=== PATIENT | male | born 2000 | race Caucasian/White ===

== ENCOUNTER 2023-01-30 19:05 | Emergency (ER) | payer MEDICAID ==
--- NOTE | 2023-01-30 20:42 | XRAY Report ---
PROCEDURE: Chest 2 View X-Ray INDICATIONS: chest pain TECHNIQUE: 2 views of the chest were acquired. COMPARISON: None. FINDINGS: Surgical changes and devices: None. Lungs and pleura: No pleural effusions or pneumothorax. Lungs are clear. Mediastinum: Mediastinal contours appear normal. Heart size is normal. Bones and chest wall: No suspicious bony lesions. Overlying soft tissues appear unremarkable. IMPRESSION: No acute cardiopulmonary process. Reviewed by: Akhil Gonzalez MD on 01/30/2023 8:40 PM PDT Approved by: Akhil Gonzalez MD on 01/30/2023 8:40 PM PDT Station ID: [id number]
--- NOTE | 2023-01-30 20:54 | ED Physician Documentation ---
PD HPI CHEST PAIN - Stated complaint Stated Complaint: CHEST PX - Chief complaint Chief Complaint: Cardiac - History obtained from History obtained from: Patient - Additional information Additional information: 22yM previously healthy presents to the ED with midsternal cp X 1 year, worsening over past month. patient has brief remitting episodes every 5 to 10 minutes with associated soa . he states it improves with sipping a sugary beverage or taking deep breaths. denies nausea, lightheadedness, fever, cough, leg swelling, hemoptysis. PD PAST MEDICAL HISTORY - Allergies Allergies/Adverse Reactions: Allergies Allergy/AdvReac Type Severity Reaction Status Date / Time No Known Drug Allergies Allergy Verified 01/30/23 19:21 PD ED PE NORMAL - Vitals Vital signs reviewed: Yes - General General: Alert and oriented X 3, No acute distress, Well developed/nourished - HEENT HEENT: Atraumatic, PERRL, EOMI, Moist mucous membranes - Neck Neck: Supple, no meningeal sign - Cardiac Cardiac: RRR - Respiratory Respiratory: No respiratory distress, Clear bilaterally - Abdomen Abdomen: Non tender, Non distended - Derm Derm: Normal color, Warm and dry - Neuro Neuro: Alert and oriented X 3 Results - Vitals Vitals: Vital Signs - 24 hr 01/30/23 19:11 Temperature 36.7 C Heart Rate 94 Respiratory 18 Rate Blood Pressure 148/92 H O2 Saturation 98 Oxygen O2 Source Room air PD Medical Decision Making - ED course ED course: 22yM presents to the ED with CP X 1 year without acute red flag symptoms tonight. CXR Showed no evidence of cardiopulmonary disease per my interpretation. I will call him if the radiologist has any additional findings. He is with completely benign physical exam including cardiopulmonary exam. Return precautions given. Plan to follow-up with primary care provider. Likely costochondritis versus panic attack. Doubt pneumonia, pneumothorax, pleural effusion, given normal chest x-ray and doubt asthma given no evidence of wheezing. He is extremely low risk for pulmonary embolism or IN. Departure - Departure Disposition: 01 Home, Self Care Clinical Impression: Chest pain, Hypertension Condition: Stable Instructions: ED Chest Pain NonCardiac Comments: You were seen in the emergency department for chest pain. Your chest xray looked okay and you had a normal exam. You did have some mildly increased blood pressure of 148/92. Please follow-up with your primary care provider and return to the emergency department if you have any new or worsening symptoms or other concerns.
[2023-01-30 21:04] VITALS: BP 122/66; O2SAT 96
== END 2023-01-30 20:59 | disposition home or self-care (01) ==
LOC: ED 19:05
DX: R07.9 Chest pain, unspecified (principal); I10 Essential (primary) hypertension
CPT/HCPCS: 93005; 99283; 99284

== ENCOUNTER 2023-03-03 12:27 | Emergency (ER) | payer MEDICAID ==
[2023-03-03] MEDS ORDERED: FAMOTIDINE 20 MG/2 ML VIAL IVP STA (12:49)
[2023-03-03] MEDS ORDERED: ONDANSETRON 4 MG/2 ML VIAL IVP STA (12:49)
--- NOTE | 2023-03-03 12:52 | ED Physician Documentation ---
History of Present Illness - Stated complaint Stated Complaint: VOMITING - Chief complaint Chief Complaint: Abd Pain - Additonal information Additional information: 23-year-old presents with nausea and vomiting intermittently over the course of the last several weeks. He states it started out was just dry heaving but the last few days he has been vomiting up food. The episodes seem to come spontaneously, he does note that last night he had a nightmare, he woke up in the middle of the night in a panic and then ran to the bathroom and had to vomit. Other times he has simply been walking on the street and feeling like he needs to dry heaves and/or vomit. He has some mild abdominal soreness, no focal pain. He has not had fever or chills, no dysuria urgency or frequency. He does have intermittent diarrhea that is not uncommon for him, he states he believes that he is lactose intolerant. No change in diet recently. He does not smoke marijuana, no history of cyclic vomiting. He has not attempted any medication for this issue. He does not smoke cigarettes about a pack a day, denies alcohol use. PD PAST MEDICAL HISTORY - Past Medical History Past Medical History: Yes Cardiovascular: Hypertension Respiratory: None Neuro: None Endocrine/Autoimmune: None GI: None : None HEENT: None Psych: None Musculoskeletal: None Derm: None - Past Surgical History Past Surgical History: No - Present Medications Home Medications: Ambulatory Orders Medication Instructions Recorded Confirmed Famotidine [Acid [employer]] 20 mg PO DAILY #30 tab 03/03/23 Lisinopril [Zestril] 20 mg PO DAILY 03/03/23 03/03/23 Ondansetron Odt [Zofran] 4 mg TL Q6H PRN #10 tablet 03/03/23 - Allergies Allergies/Adverse Reactions: Allergies Allergy/AdvReac Type Severity Reaction Status Date / Time No Known Drug Allergies Allergy Verified 03/03/23 12:36 - Social History Does the pt smoke?: Yes Smoking Status: Current every day smoker Does the pt drink ETOH?: No Does the pt have substance abuse?: No - Immunizations Immunizations are current?: No Immunizations: Other immun not current PD ED PE NORMAL - Vitals Vital signs reviewed: Yes - General General: Alert and oriented X 3, No acute distress, Well developed/nourished - HEENT HEENT: Atraumatic, Moist mucous membranes - Cardiac Cardiac: RRR, No murmur, No gallop, No rub - Respiratory Respiratory: No respiratory distress, Clear bilaterally - Abdomen Abdomen: Normal bowel sounds, Soft, Non tender, Non distended, No organomegaly, Other - Derm Derm: Normal color, Warm and dry, No rash Results - Vitals Vitals: Vital Signs - 24 hr 03/03/23 03/03/23 12:36 13:05 Temperature 36.1 C L Heart Rate 102 H 95 Respiratory 18 20 Rate Blood Pressure 151/97 H 142/81 H O2 Saturation 99 97 Oxygen O2 Source Room air - Labs Labs: Laboratory Tests 03/03/23 03/03/23 12:57 12:57 WBC 9.9 RBC 5.49 Hgb 15.3 Hct 45.5 MCV 82.9 MCH 27.9 MCHC 33.6 RDW 12.5 Plt Count 270 MPV 8.9 Neut # (Auto) 5.4 Lymph # (Auto) 3.3 Ellis # (Auto) 0.9 Eos # (Auto) 0.1 Baso # (Auto) 0.1 Absolute Nucleated RBC 0.00 Nucleated RBC % 0.0 Sodium 136 Potassium 3.8 Chloride 102 Carbon Dioxide 28 Anion Gap 6.0 BUN 9 Creatinine 0.6 Estimated GFR (MDRD) 168 Glucose 141 H Calcium 9.7 Total Bilirubin 0.4 AST 20 ALT 48 Alkaline Phosphatase 58 Total Protein 7.2 Albumin 4.5 Globulin 2.7 Albumin/Globulin Ratio 1.7 Lipase 18 PD Medical Decision Making - ED course Complexity details: reviewed results, considered differential, d/w patient Departure - Departure Disposition: 01 Home, Self Care Clinical Impression: Vomiting Qualifiers: Vomiting type: unspecified Nausea presence: without nausea Qualified Code(s): R11.11 - Vomiting without nausea Condition: Good Instructions: ED Nausea Vomiting Prescriptions: Famotidine [Acid [employer]] 20 mg PO DAILY #30 tab Ondansetron Odt [Zofran] 4 mg TL Q6H PRN #10 tablet PRN Reason: Nausea / Vomiting Comments: Your labs are stable and the cause for your symptoms is not certain but often is due to reflux or cyclic vomiting. It does not appear to be due to infection or a more emergent or surgical issue as this time. Please start the antacid medication that I have prescribed and you can also use as needed Zofran which is a medication for nausea. Please monitor your diet and see if there are any triggers for your symptoms. If ongoing symptoms, follow-up with your primary doctor and they may refer you to to a [facility] for an endoscopy to evaluate your GI track. Your meds were sent to [facility]. Forms: PCP List
[2023-03-03 13:01] LABS: BASOPHILS # (AUTO) 0.1 10^3/uL (0.0-0.1); EOSINOPHILS # (AUTO) 0.1 10^3/uL (0.0-0.7); EOSINOPHILS % (AUTO) 1.4 %; HCT - HEMATOCRIT 45.5 % (42.0-52.0); HGB - HEMOGLOBIN 15.3 g/dL (14.0-18.0); LYMPHOCYTES # (AUTO) 3.3 10^3/uL (1.5-3.5); LYMPHOCYTES % (AUTO) 33.6 %; MEAN CORPUSCULAR HEMOGLOBIN 27.9 pg (27.0-31.0); MEAN CORPUSCULAR HGB CONC 33.6 g/dL (32.0-36.0); MEAN CORPUSCULAR VOLUME 82.9 fL (80.0-94.0); MEAN PLATELET VOLUME 8.9 fL (7.4-11.4); MONOCYTES # (AUTO) 0.9 10^3/uL (0.0-1.0); MONOCYTES % (AUTO) 9.1 %; NEUTROPHILS # (AUTO) 5.4 10^3/uL (1.5-6.6); NEUTROPHILS % (AUTO) 54.5 %; PLT - PLATELET COUNT 270 10^3/uL (130-450); RED BLOOD COUNT 5.49 10^6/uL (4.70-6.10); RED CELL DISTRIBUTION WIDTH 12.5 % (12.0-15.0); WHITE BLOOD COUNT 9.9 x10^3/uL (4.8-10.8)
[2023-03-03 13:21] LABS: ALBUMIN 4.5 g/dL (3.2-5.5); ALBUMIN/GLOBULIN RATIO 1.7 (1.0-2.2); BILIRUBIN,TOTAL 0.4 mg/dL (0.2-1.0); CALCIUM 9.7 mg/dL (8.5-10.3); CREATININE 0.6 mg/dL (0.6-1.3); POTASSIUM 3.8 mmol/L (3.5-4.5); TOTAL PROTEIN 7.2 g/dL (6.4-8.9)
[2023-03-03 14:04] LABS: BILIRUBIN,URINE NEGATIVE (NEGATIVE); GLUCOSE, URINE (UA) NEGATIVE (NEGATIVE); KETONES,URINE (UA) NEGATIVE (NEGATIVE); LEUKOCYTE ESTERASE, URINE NEGATIVE (NEGATIVE); NITRITE,URINE NEGATIVE (NEGATIVE); OCCULT BLOOD,URINE NEGATIVE (NEGATIVE); PROTEIN,URINE NEGATIVE (NEGATIVE); UROBILINOGEN,URINE 0.2 (NORMAL) E.U./dL (NORMAL)
[2023-03-03 14:08] LABS: AMORPHOUS SEDIMENT,UR Moderate /LPF; BACTERIA,URINE Rare /HPF (None Seen); CLARITY,URINE CLOUDY (CLEAR); RBC,URINE None Seen /HPF (0-5); SQUAMOUS EPITHELIAL CELL,UR NONE SEEN (<= Few); WBC,URINE 0-3 /HPF (0-3)
[2023-03-03 14:22] VITALS: BP 144/90; O2SAT 100
== END 2023-03-03 14:43 | disposition home or self-care (01) ==
LOC: ED 12:27
DX: R11.11 Vomiting without nausea (principal); F17.200 Nicotine dependence, unspecified, uncomplicated
CPT/HCPCS: 36415; 80053; 81001; 81003; 83690; 85025; 87086; 96374; 99282